=== PATIENT | female | born 1950 | race Caucasian/White ===

== ENCOUNTER 2019-02-26 22:33 | Emergency (ER) | payer MEDICAID ==
[~2019-02-26] VITALS: Ht 165.1 cm; Wt 76.3 kg
[2019-02-27] MEDS ORDERED: KETOROLAC 15MG/ML VIAL IV ONE (00:15)
[2019-02-27] MEDS ORDERED: AMLODIPINE 5MG TABLET PO ONE (00:15)
[2019-02-27 00:17] LABS: BASOPHILS % 0.9 % (0.0-2.0); EOSINOPHILS % 3.4 % (0.0-5.0); HEMATOCRIT. 35.6 % (36.0-48.0); LYMPHOCYTES % 31.8 % (20.0-50.0); MEAN CORPUSCULAR HEMOGLOBIN 30.7 pg (28.0-32.0); MONOCYTES % 7.2 % (2.0-8.0); NEUTROPHILS % 56.7 % (40.0-76.0); PLATELET 276 x1000/uL (130-400); RED BLOOD CELL COUNT 3.92 mill/uL (4.2-5.4); RED CELL DISTRIBUTION WIDTH 12.8 % (11.6-14.6)
[2019-02-27 00:23] LABS: CHLORIDE 108 mEq/L (98-107)
[2019-02-27 06:00] VITALS: BP 138/59
== END 2019-02-27 06:50 | disposition home or self-care (01) ==
LOC: ER 22:33
DX: R07.89 Other chest pain (principal); I10 Essential (primary) hypertension; F32.9 Major depressive disorder, single episode, unspecified
CPT/HCPCS: 36415; 71045; 80053; 84484; 85025; 93005; 96374; 99284; J1885; Z7610

== ENCOUNTER 2022-04-13 01:01 | Emergency (ER) | payer MEDICAID, OTHER ==
[~2022-04-13] VITALS: Ht 157.5 cm; Wt 70.0 kg
[2022-04-13 03:28] LABS: BASOPHILS % 0.7 % (0.0-2.0); EOSINOPHILS % 4.2 % (0.0-5.0); HEMATOCRIT. 38.2 % (36.0-48.0); HEMOGLOBIN. 12.8 g/dL (12.0-16.0); LYMPHOCYTES % 46.3 % (20.0-50.0); MEAN CORPUSCULAR HEMOGLOBIN 30.6 pg (28.0-32.0); MEAN CORPUSCULAR VOLUME 91.1 fL (81.0-99.0); MEAN PLATELET VOLUME 7.2 fl (7.4-10.4); MONOCYTES % 8.5 % (2.0-8.0); NEUTROPHILS % 40.3 % (40.0-76.0); PLATELET 262 x1000/uL (130-400); RED BLOOD CELL COUNT 4.19 mill/uL (4.2-5.4); RED CELL DISTRIBUTION WIDTH 13.4 % (11.6-14.6)
[2022-04-13 03:37] LABS: CHLORIDE 105 mEq/L (98-107)
[2022-04-13] MEDS ORDERED: NITROGLYCERIN OINT 1GM/INCH UDPKT TD ONE (08:30)
[2022-04-13] MEDS ORDERED: ASPIRIN 81MG TABLET PO ONE (08:30)
[2022-04-13 09:00] VITALS: BP 133/55
== END 2022-04-13 11:04 | disposition left against medical advice (07) ==
LOC: ER 01:01
DX: R07.89 Other chest pain (principal); F32.A Depression, unspecified; I10 Essential (primary) hypertension; E78.00 Pure hypercholesterolemia, unspecified; Z86.011 Personal history of benign neoplasm of the brain
CPT/HCPCS: 36415; 71045; 80053; 83880; 84484; 85025; 85379; 93005; 99285; Z7610

== ENCOUNTER 2022-08-01 18:02 | Emergency (ER) | payer OTHER ==
[~2022-08-01] VITALS: Ht 165.1 cm; Wt 77.0 kg
[2022-08-01 18:28] VITALS: BP 166/58
== END 2022-08-01 23:00 | disposition left against medical advice (07) ==
LOC: ER 18:02
DX: Z53.21 Procedure and treatment not carried out due to patient leaving prior to being seen by health care provider (principal)

== ENCOUNTER 2022-08-03 12:14 | Emergency (ER) | payer OTHER ==
[~2022-08-03] VITALS: Ht 160 cm; Wt 80.0 kg
[2022-08-03] MEDS ORDERED: HYDROCODONE/ACETAMINOPHEN 5/325MG TABLET PO ONE (13:00)
[2022-08-03 14:09] LABS: CLARITY URINE CLOUDY (CLEAR); COLOR URINE BROWN (YELLOW); KETONES URINE TRACE (NEGATIVE); LEUKOCYTE ESTERASE URINE TRACE (NEGATIVE); NITRITE URINE NEGATIVE (NEGATIVE); OCCULT BLOOD URINE 3+ (NEGATIVE); PROTEIN URINE 3+ (NEGATIVE); SPECIFIC GRAVITY URINE 1.032 (1.005-1.030); UROBILINOGEN URINE 0.2 E.U./dL (0.2-1.0)
[2022-08-03 15:48] LABS: BASOPHILS % 0.4 % (0.0-2.0); EOSINOPHILS % 1.9 % (0.0-5.0); HEMATOCRIT. 38.3 % (36.0-48.0); HEMOGLOBIN. 12.7 g/dL (12.0-16.0); LYMPHOCYTES % 20.3 % (20.0-50.0); MEAN CORPUSCULAR HEMOGLOBIN 30.4 pg (28.0-32.0); MEAN CORPUSCULAR VOLUME 91.4 fL (81.0-99.0); MEAN PLATELET VOLUME 7.5 fl (7.4-10.4); MONOCYTES % 5.9 % (2.0-8.0); NEUTROPHILS % 71.5 % (40.0-76.0); PLATELET 266 x1000/uL (130-400); RED BLOOD CELL COUNT 4.19 mill/uL (4.2-5.4)
[2022-08-03 15:59] LABS: CHLORIDE 103 mEq/L (98-107)
[2022-08-03] MEDS ORDERED: IOHEXOL-300 100 ML BOTTLE ONE (17:36)
[2022-08-03] MEDS ORDERED: CEFTRIAXONE 1 G PREMIX 50 ML IV NR (18:30)
[2022-08-03] MEDS ORDERED: T3 PO (18:54)
[2022-08-03] MEDS ORDERED: PHEN-910 PO (18:54)
[2022-08-03] MEDS ORDERED: SULF1TAB48 PO (18:54)
[2022-08-03 19:15] VITALS: BP 136/72
== END 2022-08-03 19:17 | disposition home or self-care (01) ==
LOC: ER 12:14
DX: N30.01 Acute cystitis with hematuria (principal); I10 Essential (primary) hypertension; F32.A Depression, unspecified
CPT/HCPCS: 36415; 74177; 76770; 80053; 81003; 83615; 83690; 85025; 87077; 87086; 87186; 96365; 99285; J0696; Q9967

== ENCOUNTER 2022-10-01 23:54 | Emergency (ER) | payer OTHER ==
[~2022-10-01] VITALS: Ht 165.1 cm; Wt 77.2 kg
[~2022-10-01 23:54] MED LIST: PHEN-910 PO; SULF1TAB48 PO; T3 PO
[2022-10-02 01:35] LABS: BASOPHILS % 0.7 % (0.0-2.0); HEMATOCRIT. 37.6 % (36.0-48.0); HEMOGLOBIN. 12.5 g/dL (12.0-16.0); LYMPHOCYTES % 44.1 % (20.0-50.0); MEAN CORPUSCULAR HEMOGLOBIN 30.2 pg (28.0-32.0); MEAN CORPUSCULAR VOLUME 90.8 fL (81.0-99.0); MONOCYTES % 8.2 % (2.0-8.0); PLATELET 245 x1000/uL (130-400); RED BLOOD CELL COUNT 4.14 mill/uL (4.2-5.4); RED CELL DISTRIBUTION WIDTH 13.4 % (11.6-14.6)
[2022-10-02 01:42] LABS: CHLORIDE 105 mEq/L (98-107)
[2022-10-02 02:26] LABS: INR 0.9
[2022-10-02] MEDS ORDERED: KETOROLAC 15MG/ML VIAL IM ONE (04:15)
[2022-10-02 04:48] VITALS: BP 131/81
== END 2022-10-02 04:49 | disposition home or self-care (01) ==
LOC: ER 10-02 00:16
DX: R07.89 Other chest pain (principal)
CPT/HCPCS: 36415; 71045; 80053; 84484; 85025; 85610; 93005; 99285; J1885; 96372

== ENCOUNTER 2023-12-18 15:35 | Emergency (ER) | payer MEDICAID, OTHER ==
[~2023-12-18] VITALS: Ht 162.6 cm; Wt 79.4 kg
[2023-12-18 15:52] VITALS: O2SAT 96
[2023-12-18] MEDS: ACETAMINOPHEN 325MG TABLET PO STA (16:47)
[2023-12-18] MEDS: TETANUS, DIPHTHERIA, PERTUSSIS VAC/PF 0.5ML (>10YR OLD) IM ONE (16:48)
[2023-12-18] MEDS ORDERED: ACET-2708 PO (17:01)
[2023-12-18] MEDS: BACITRACIN ZINC OINT UDPKT TOP ONE (17:01)
[2023-12-18] MEDS ORDERED: AMOX1TAB16 PO (17:01)
[2023-12-18] MEDS: AMOXICILLIN/POTASSIUM CLAVULANATE 875/125MG TAB PO NR (17:06)
[2023-12-18 18:18] VITALS: BP 172/65; PULSE 64; RESP 18; TEMP 98.5
== END 2023-12-18 18:19 | disposition home or self-care (01) ==
LOC: ER 15:35
DX: S61.250A Open bite of right index finger without damage to nail, initial encounter (principal); I10 Essential (primary) hypertension; W64.XXXA Exposure to other animate mechanical forces, initial encounter; Y93.89 Activity, other specified; Y92.89 Other specified places as the place of occurrence of the external cause; Y99.8 Other external cause status
CPT/HCPCS: 90715; 90471; 99283; Z7610 ×2

== ENCOUNTER 2025-05-07 08:18 | Emergency (ER) | payer OTHER ==
[~2025-05-07] VITALS: Ht 165.1 cm; Wt 70.0 kg
[~2025-05-07 08:18] MED LIST changes: +ACET-2708 PO; +AMOX1TAB16 PO
[2025-05-07 08:22] VITALS: O2SAT 97
[2025-05-07 08:54] LABS: BASOPHILS % 1.0 % (0.0-2.0); EOSINOPHILS % 3.8 % (0.0-5.0); HEMATOCRIT. 39.2 % (36.0-48.0); HEMOGLOBIN. 12.9 g/dL (12.0-16.0); LYMPHOCYTES % 29.8 % (20.0-50.0); MEAN PLATELET VOLUME 7.2 fl (7.4-10.4); MONOCYTES % 7.6 % (2.0-8.0); NEUTROPHILS % 57.8 % (40.0-76.0); PLATELET 302 x1000/uL (130-400); RED BLOOD CELL COUNT 4.23 mill/uL (4.2-5.4); RED CELL DISTRIBUTION WIDTH 13.2 % (11.6-14.6)
[2025-05-07 09:09] LABS: CREATININE 0.8 mg/dL (0.6-1.0)
[2025-05-07 09:10] LABS: TROPONIN I HIGH SENSITIVITY 4 ng/L (3.0-34); UREA NITROGEN BLOOD 18 mg/dL (9-23)
[2025-05-07] MEDS: ACETAMINOPHEN 325MG TABLET PO ONE (09:24)
[2025-05-07] MEDS: ASPIRIN 81MG TABLET PO ONE (09:24)
[2025-05-07 10:53] VITALS: BP 162/75; PULSE 67; RESP 14; TEMP 37; O2SAT 98
== END 2025-05-07 10:54 | disposition home or self-care (01) ==
LOC: ER 08:18 → CANBEDREQ 10:01 → ER 10:54
DX: R07.89 Other chest pain (principal); R06.02 Shortness of breath; Z79.899 Other long term (current) drug therapy
CPT/HCPCS: 80048; 83880; 85025; 84484; 36415; 71045; 93005; 99285; Z7610